=== PATIENT | female | born 1940 | race Caucasian/White ===

== ENCOUNTER 2022-01-13 20:06 | Emergency (ER) | payer OTHER ==
[~2022-01-13] VITALS: Ht 157.5 cm; Wt 58.1 kg
[2022-01-13 20:37] LABS: BASOPHILS % (AUTO) 0.8 % (0.0-5.0); EOSINOPHILS % (AUTO) 1.9 % (0.0-8.0); HEMATOCRIT 43.1 % (36-48); LYMPHOCYTES % (AUTO) 32.7 % (21.0-51.0); MEAN CORPUSCULAR HEMOGLOBIN 33.6 pg (27.0-33.0); MEAN CORPUSCULAR HGB CONC 33.6 g/dL (32.0-36.0); MONOCYTES % (AUTO) 11.3 % (3.0-13.0); PLATELET COUNT (AUTO) 185 K/uL (130-400); RED BLOOD CELL COUNT(AUTO) 4.31 MIL/uL (4.00-5.50); RED CELL DISTRIBUTION WIDTH 13.8 % (11.0-15.5); WHITE BLOOD COUNT (AUTO) 6.4 K/uL (4.8-10.8)
[2022-01-13 20:42] LABS: CREATININE 0.8 mg/dL (0.5-1.5); POTASSIUM 3.8 mmol/L (3.5-5.1)
[2022-01-13 20:46] LABS: ALBUMIN 3.7 g/dL (3.5-5.0); TOTAL PROTEIN, SERUM 7.7 g/dL (6.0-8.3)
[2022-01-13 20:51] LABS: APPEARANCE,URINE CLOUDY (CLEAR); BILIRUBIN,URINE NEGATIVE (NEGATIVE); COLOR,URINE LIGHT-YELLOW (YELLOW); GLUCOSE, URINE (UA) NEGATIVE (NEGATIVE); KETONES,URINE 5 mg/dL (NEGATIVE); LEUKOCYTE ESTERASE ,URINE 500 Leu/uL (NEGATIVE); NITRATE,URINE NEGATIVE (NEGATIVE); OCCULT BLOOD,URINE SMALL (NEGATIVE); PROTEIN,URINE NEGATIVE (NEGATIVE); UROBILINOGEN,URINE 0.2 mg/dL (0.2-1.0)
[2022-01-13 21:01] LABS: BACTERIA,URINE RARE /HPF (None Seen); MUCUS,URINE RARE LPF (None Seen); SQUAMOUS EPITHELIAL CELL,UR MOD /HPF (0-2); WBC,URINE 51-100 /HPF (0-1)
[2022-01-13 21:58] LABS: INR 0.95 (0.85-1.15); PROTHROMBIN TIME 10.4 SEC (9.6-11.6)
[2022-01-13 21:59] LABS: PARTIAL THROMBOPLASTIN TIME 27.7 SEC (26.3-35.5)
[2022-01-13] MEDS ORDERED: APIXABAN 5 MG TABLET ONE (22:11)
[2022-01-13] MEDS ORDERED: APIXABAN 5 MG TABLET PO ONE (22:30)
[2022-01-13] MEDS ORDERED: APIX5TAB PO (22:42)
[2022-01-13 22:48] VITALS: BP 149/55
== END 2022-01-13 23:09 | disposition home or self-care (01) ==
LOC: EDH 20:06
DX: I82.402 Acute embolism and thrombosis of unspecified deep veins of left lower extremity (principal); E78.00 Pure hypercholesterolemia, unspecified; I10 Essential (primary) hypertension; Z98.890 Other specified postprocedural states
CPT/HCPCS: 36415; 80053; 81001; 85025; 85610; 85730; 87088

== ENCOUNTER → 2022-04-17 | Outpatient (CLI) | payer OTHER ==
[~2022-04-17] MED LIST: APIX5TAB PO
== END | disposition home or self-care (01) ==
LOC: SHCH 12:22
PROVIDERS: ATTEND Student in an Organized Health Care Education/Training Program
DX: I82.402 Acute embolism and thrombosis of unspecified deep veins of left lower extremity (principal); I82.432 Acute embolism and thrombosis of left popliteal vein; I82.412 Acute embolism and thrombosis of left femoral vein; R60.9 Edema, unspecified
CPT/HCPCS: 93970

== ENCOUNTER → 2022-08-05 | Outpatient (CLI) | payer OTHER | END | disposition home or self-care (01) | LOC: SHCH 12:18 | PROVIDERS: ATTEND Student in an Organized Health Care Education/Training Program | DX: I82.432 Acute embolism and thrombosis of left popliteal vein (principal); I73.9 Peripheral vascular disease, unspecified; I10 Essential (primary) hypertension; E78.5 Hyperlipidemia, unspecified; Z79.01 Long term (current) use of anticoagulants; Z79.899 Other long term (current) drug therapy | CPT/HCPCS: 93971 ==

== ENCOUNTER 2023-10-15 17:04 | Emergency (ER) | payer OTHER ==
[~2023-10-15] VITALS: Ht 157.5 cm; Wt 56.7 kg
[~2023-10-15 17:04] MED LIST changes: -APIX5TAB PO; +DIPH1TAB PO; +LEVO-70 PO; +LORA10TA7 PO; +METO50TA18 PO; +OMEP40CA21 PO; +ONDA-104 PO; +ONDA-245 PO; +SIMV-46 PO; +b12; +folate
[2023-10-15 18:24] LABS: APPEARANCE,URINE CLEAR (CLEAR); BILIRUBIN,URINE NEGATIVE (NEGATIVE); COLOR,URINE COLORLESS (YELLOW); GLUCOSE, URINE (UA) NEGATIVE (NEGATIVE); KETONES,URINE NEGATIVE (NEGATIVE); LEUKOCYTE ESTERASE ,URINE NEGATIVE Leu/uL (NEGATIVE); NITRATE,URINE NEGATIVE (NEGATIVE); OCCULT BLOOD,URINE NEGATIVE (NEGATIVE); PH,URINE 5.5 (5.0-8.0); PROTEIN,URINE NEGATIVE (NEGATIVE); UROBILINOGEN,URINE 0.2 mg/dL (0.2-1.0)
[2023-10-15 18:26] LABS: ADD UA MICROSCOPIC YES
[2023-10-15 18:27] LABS: RBC,URINE 0-1 /HPF (0-1); SQUAMOUS EPITHELIAL CELL,UR RARE /HPF (0-2)
[2023-10-15] MEDS: ONDANSETRON 4MG INJ IVP ONE (18:57)
[2023-10-15] MEDS: FAMOTIDINE 20MG TAB PO ONE (18:57)
[2023-10-15 19:24] LABS: BASOPHILS # (AUTO) 0.05 K/uL (0.00-0.20); BASOPHILS % (AUTO) 0.8 % (0.0-5.0); EOSINOPHILS # (AUTO) 0.02 K/uL (0.00-0.70); EOSINOPHILS % (AUTO) 0.3 % (0.0-8.0); HEMATOCRIT 37.6 % (36-48); IMMATURE GRANULOCYTE ABSOLUTE 0.04 K/uL (0-1); LYMPHOCYTES # (AUTO) 1.3 K/uL (1.0-4.8); LYMPHOCYTES % (AUTO) 21.3 % (21.0-51.0); MEAN CORPUSCULAR HEMOGLOBIN 33.2 pg (27.0-33.0); MEAN CORPUSCULAR HGB CONC 34.3 g/dL (32.0-36.0); MEAN CORPUSCULAR VOLUME 96.9 fL (79-99); MONOCYTES # (AUTO) 0.8 K/uL (0.1-1.0); MONOCYTES % (AUTO) 12.5 % (3.0-13.0); NEUTROPHILS # (AUTO) 3.9 K/uL (1.8-7.7); NEUTROPHILS % (AUTO) 64.4 % (40.0-77.0); PLATELET COUNT (AUTO) 169 K/uL (130-400); RED BLOOD CELL COUNT(AUTO) 3.88 MIL/uL (4.00-5.50); RED CELL DISTRIBUTION WIDTH 13.1 % (11.0-15.5); WHITE BLOOD COUNT (AUTO) 6.1 K/uL (4.8-10.8)
[2023-10-15 19:27] LABS: CREATININE 0.8 mg/dL (0.5-1.0); POTASSIUM 3.4 mmol/L (3.5-5.1)
[2023-10-15] MEDS ORDERED: IOHEXOL-350 75 ML VIAL IV ONE (19:32)
[2023-10-15 19:35] LABS: ALBUMIN 3.9 g/dL (3.5-5.0); BILIRUBIN,TOTAL 0.6 mg/dL (0.2-1.0); TOTAL PROTEIN, SERUM 7.4 g/dL (6.0-8.3)
[2023-10-15] MEDS: ONDANSETRON 4MG INJ IVP STA (20:08)
[2023-10-15 20:14] VITALS: PULSE 102
[2023-10-15] MEDS: 0.9%NACL 1000ML 1,000 ML IV ONE (20:16)
[2023-10-15 20:34] VITALS: BP 170/72; RESP 18; O2SAT 97
[2023-10-15] MEDS ORDERED: ONDA-243 PO (20:40)
== END 2023-10-15 20:57 | disposition home or self-care (01) ==
LOC: EDH 17:04
DX: K57.90 Diverticulosis of intestine, part unspecified, without perforation or abscess without bleeding (principal); R19.7 Diarrhea, unspecified; R11.0 Nausea; I10 Essential (primary) hypertension; E78.00 Pure hypercholesterolemia, unspecified; Z79.899 Other long term (current) drug therapy; Z87.440 Personal history of urinary (tract) infections; Z90.710 Acquired absence of both cervix and uterus; Z98.890 Other specified postprocedural states
CPT/HCPCS: 99285; 74177; 96374; 96361; 84484; 80053; 83690; 85025; 81001; 36415; 96376; 93005; J7030; J2405 ×2; Q9967

== ENCOUNTER 2023-12-15 19:07 | Inpatient (IN) | payer OTHER ==
[~2023-12-15] VITALS: Ht 157.5 cm; Wt 54.8 kg
[~2023-12-15 19:07] MED LIST changes: +ONDA-243 PO; -b12; +b12 PO
[2023-12-15] MEDS: metoPROLOL tartRATE 1 MG/ML 5ML VIAL IV ONE ×2 (19:32)
[2023-12-15 19:35] LABS: BASOPHILS # (AUTO) 0.05 K/uL (0.00-0.20); BASOPHILS % (AUTO) 0.4 % (0.0-5.0); EOSINOPHILS # (AUTO) 0.24 K/uL (0.00-0.70); HEMATOCRIT 34.6 % (36-48); IMMATURE GRANULOCYTE ABSOLUTE 0.05 K/uL (0-1); LYMPHOCYTES # (AUTO) 0.2 K/uL (1.0-4.8); LYMPHOCYTES % (AUTO) 1.6 % (21.0-51.0); MEAN CORPUSCULAR HEMOGLOBIN 32.7 pg (27.0-33.0); MEAN CORPUSCULAR HGB CONC 34.7 g/dL (32.0-36.0); MEAN CORPUSCULAR VOLUME 94.3 fL (79-99); MONOCYTES # (AUTO) 1.4 K/uL (0.1-1.0); MONOCYTES % (AUTO) 11.6 % (3.0-13.0); PLATELET COUNT (AUTO) 183 K/uL (130-400); RED BLOOD CELL COUNT(AUTO) 3.67 MIL/uL (4.00-5.50); RED CELL DISTRIBUTION WIDTH 13.3 % (11.0-15.5); WHITE BLOOD COUNT (AUTO) 11.9 K/uL (4.8-10.8)
[2023-12-15] MEDS: acetaMINOPHEN 325 MG TAB PO ONE (19:49)
[2023-12-15 19:55] LABS: CREATININE 1.8 mg/dL (0.5-1.0); POTASSIUM 3.6 mmol/L (3.5-5.1)
[2023-12-15 19:56] LABS: MAGNESIUM 1.6 mg/dL (1.80-2.40)
[2023-12-15 20:00] LABS: INR 1.04 (0.85-1.15); PROTHROMBIN TIME 11.2 SEC (9.6-11.6)
[2023-12-15 20:01] LABS: B-TYPE NATRIURETIC PEPTIDE 83 pg/mL (0-100); PARTIAL THROMBOPLASTIN TIME 36.2 SEC (26.3-35.5)
[2023-12-15 20:21] VITALS: TEMP 98.7
[2023-12-15] MEDS: 0.9%NACL 1000ML 1,000 ML IV ONE (20:27)
[2023-12-15] MEDS ORDERED: MAGNESIUM 4GM PREMIX 100ML IV SCH (20:30)
[2023-12-15] MEDS: MAGNESIUM 2GM PREMIX 50ML 50 ML IV SCH (20:44)
[2023-12-15] MEDS: ALBUMIN (HUMAN) 5% 500 ML IV SCH (21:56)
[2023-12-15] MEDS ORDERED: POTA-364 PO (22:20)
[2023-12-15] MEDS ORDERED: OMEP20CA12 PO (22:20)
[2023-12-15] MEDS ORDERED: ACET-66 PO (22:20)
[2023-12-15] MEDS ORDERED: ONDA-105 PO (22:20)
[2023-12-15] MEDS ORDERED: AEC81 PO (22:20)
[2023-12-15] MEDS ORDERED: LATA2.5D14 OU (22:20)
[2023-12-15] MEDS ORDERED: cefTRIAXone 1G VIAL 1 GM in 0.9%NACL 50ML 50 ML IV SCH (23:30)
[2023-12-15] MEDS ORDERED: MAGNESIUM 2GM PREMIX 50ML 50 ML IV PRN (23:30)
[2023-12-15] MEDS ORDERED: DEXTROSE 50%-WATER 50 ML DISP.SYRIN IV PRN (23:30)
[2023-12-15] MEDS ORDERED: POTASSIUM CHLORIDE 20MEQ/100ML 100 ML IV PRN (23:30)
[2023-12-15] MEDS ORDERED: GLUCAGON 1MG KIT 1 MG ML IM PRN (23:30)
[2023-12-16] VITALS (9 sets, daily range): BP systolic 101–122; BP diastolic 56–80; PULSE 80–92; RESP 18–20; TEMP 97.5–98.8; O2SAT 96–98
[2023-12-16] MEDS: 0.9%NACL 1000ML 1,000 ML IV SCH (00:06)
[2023-12-16] MEDS: HEParin 5,000 UNIT VIAL SQ SCH (00:07)
[2023-12-16] MEDS: cefTRIAXone 1G VIAL IVPB SCH (00:07)
[2023-12-16] MEDS: AZITHROMYCIN 500MG+NS 250ML 250 ML IV SCH (00:15)
[2023-12-16 04:45] LABS: BASOPHILS # (AUTO) 0.05 K/uL (0.00-0.20); BASOPHILS % (AUTO) 0.4 % (0.0-5.0); EOSINOPHILS # (AUTO) 0.01 K/uL (0.00-0.70); EOSINOPHILS % (AUTO) 0.1 % (0.0-8.0); HEMATOCRIT 32.3 % (36-48); IMMATURE GRANULOCYTE ABSOLUTE 0.04 K/uL (0-1); LYMPHOCYTES # (AUTO) 0.3 K/uL (1.0-4.8); LYMPHOCYTES % (AUTO) 2.3 % (21.0-51.0); MEAN CORPUSCULAR HEMOGLOBIN 32.7 pg (27.0-33.0); MEAN CORPUSCULAR HGB CONC 34.1 g/dL (32.0-36.0); MEAN CORPUSCULAR VOLUME 96.1 fL (79-99); MONOCYTES # (AUTO) 1.3 K/uL (0.1-1.0); MONOCYTES % (AUTO) 10.1 % (3.0-13.0); NEUTROPHILS # (AUTO) 11.1 K/uL (1.8-7.7); NEUTROPHILS % (AUTO) 86.8 % (40.0-77.0); PLATELET COUNT (AUTO) 172 K/uL (130-400); RED BLOOD CELL COUNT(AUTO) 3.36 MIL/uL (4.00-5.50); RED CELL DISTRIBUTION WIDTH 13.5 % (11.0-15.5); WHITE BLOOD COUNT (AUTO) 12.8 K/uL (4.8-10.8)
[2023-12-16 04:58] LABS: HEMOGLOBIN A1C 5.6 % (4.0-6.0)
[2023-12-16 05:16] LABS: ALBUMIN 2.3 g/dL (3.5-5.0); BILIRUBIN,TOTAL 0.5 mg/dL (0.2-1.0); CREATININE 1.7 mg/dL (0.5-1.0); POTASSIUM 3.9 mmol/L (3.5-5.1); THYROID STIMULATING HORMONE 0.87 uIU/mL (0.36-3.74); TOTAL PROTEIN, SERUM 5.6 g/dL (6.0-8.3)
[2023-12-16] MEDS: INSULIN humuLIN R 100 UNIT/ML 3ML SQ SCH (05:46)
[2023-12-16] MEDS: FAMOTIDINE 20MG TAB PO SCH (09:52)
[2023-12-16] MEDS: metOPROLol sucCINATE 25 MG TAB.SR.24H PO ONE (10:06)
[2023-12-16] MEDS: acetaMINOPHEN 325 MG TAB PO PRN (10:06)
[2023-12-16 11:48] LABS: APPEARANCE,URINE CLOUDY (CLEAR); BILIRUBIN,URINE NEGATIVE (NEGATIVE); COLOR,URINE LIGHT-YELLOW (YELLOW); GLUCOSE, URINE (UA) NEGATIVE (NEGATIVE); KETONES,URINE NEGATIVE (NEGATIVE); LEUKOCYTE ESTERASE ,URINE 500 Leu/uL (NEGATIVE); NITRATE,URINE 1+ (NEGATIVE); OCCULT BLOOD,URINE MODERATE (NEGATIVE); PROTEIN,URINE 200 mg/dL (NEGATIVE); UROBILINOGEN,URINE 0.2 mg/dL (0.2-1.0)
[2023-12-16 11:58] LABS: ADD UA MICROSCOPIC YES
[2023-12-16 12:01] LABS: BACTERIA,URINE FEW /HPF (None Seen); MUCUS,URINE RARE LPF (None Seen); SQUAMOUS EPITHELIAL CELL,UR RARE /HPF (0-2); TRANSITIONAL EPI CELLS,URINE RARE /HPF (None Seen); WBC,URINE TNTC /HPF (0-1)
[2023-12-16] MEDS: APIXaban 2.5 MG TABLET PO ONE (12:24)
[2023-12-16] MEDS: ZOSYN 3.375GM +NS 50ML IV SCH (13:13)
[2023-12-16] MEDS: ONDANSETRON 4MG INJ IV PRN (15:45)
[2023-12-16 16:12] LABS: RAPID GROUP A STREP negative (NEGATIVE)
[2023-12-16] MEDS ORDERED: NAPR-1141 PO (16:14)
[2023-12-16] MEDS ORDERED: MAGN400T53 PO (16:14)
[2023-12-16] MEDS ORDERED: SIME125C81 PO (16:14)
[2023-12-16] MEDS ORDERED: FOLI0.8T3 PO (16:14)
[2023-12-16] MEDS ORDERED: [UNRECOGNIZED DRUG - REMARK] PO (16:14)
[2023-12-16] MEDS ORDERED: ASCO500T92 PO (16:14)
[2023-12-16] MEDS ORDERED: SENN-304 PO (16:14)
[2023-12-16 16:22] LABS: COVID19 (SARS ANTIGEN RAPID) PRESUMPTIVE NEGATIVE (NEGATIVE); INFLUENZA TYPE A Negative For Type A (NEGATIVE); INFLUENZA TYPE B Negative For Type B (NEGATIVE)
[2023-12-16] MEDS: LATANOPROST 2.5 ML DROPS OU SCH (20:05)
[2023-12-16] MEDS: simVASTatin 20 MG TABLET PO SCH (20:06)
[2023-12-16] MEDS: APIXaban 2.5 MG TABLET PO SCH (20:06)
[2023-12-17] VITALS (8 sets, daily range): BP systolic 99–124; BP diastolic 50–76; PULSE 73–82; RESP 16–18; TEMP 97.5–98.6; O2SAT 93–95
[2023-12-17 04:21] LABS: HEMATOCRIT 31.9 % (36-48); MEAN CORPUSCULAR HEMOGLOBIN 32.2 pg (27.0-33.0); MEAN CORPUSCULAR HGB CONC 33.2 g/dL (32.0-36.0); RED BLOOD CELL COUNT(AUTO) 3.29 MIL/uL (4.00-5.50); RED CELL DISTRIBUTION WIDTH 13.8 % (11.0-15.5); WHITE BLOOD COUNT (AUTO) 13.2 K/uL (4.8-10.8)
[2023-12-17 04:38] LABS: ALBUMIN 1.7 g/dL (3.5-5.0); BILIRUBIN,TOTAL 0.3 mg/dL (0.2-1.0); CREATININE 1.6 mg/dL (0.5-1.0); MAGNESIUM 2.4 mg/dL (1.80-2.40); POTASSIUM 3.7 mmol/L (3.5-5.1); TOTAL PROTEIN, SERUM 5.1 g/dL (6.0-8.3)
[2023-12-17] MEDS: POTASSIUM CHLORIDE 10% ELIXIR 20 MEQ/15 ML UDCUP PO PRN (06:32)
[2023-12-17] MEDS ORDERED: NON-FORMULARY MEDICATION 1 EACH (Omeprazole 20 MG) PO SCH (07:30)
[2023-12-17] MEDS ORDERED: NON-FORMULARY MEDICATION 1 EACH (Simvastatin 40 MG) PO SCH (09:00)
[2023-12-17] MEDS: PANTOPRAZOLE 40 MG TAB DR PO SCH (10:03)
[2023-12-17] MEDS: metOPROLol sucCINATE 25 MG TAB.SR.24H PO SCH (10:03)
[2023-12-17] MEDS: KCL 20 MEQ ERTAB PO PRN (10:12)
[2023-12-17] MEDS: IpraTROPium 0.5 MG/2.5 ML INH IH SCH (12:30)
[2023-12-17] MEDS: DOXYCYCLINE 100MG+NS 250ML 250 ML IV SCH (12:46)
[2023-12-17] MEDS: SODIUM CHLORIDE 7% INHALATION 4 ML VIAL.NEB IH ONE (19:05)
[2023-12-18] VITALS (12 sets, daily range): BP systolic 116–150; BP diastolic 65–78; PULSE 68–85; RESP 18; TEMP 97.5–98.8; O2SAT 93–98
[2023-12-18 03:43] LABS: BASOPHILS # (AUTO) 0.02 K/uL (0.00-0.20); BASOPHILS % (AUTO) 0.2 % (0.0-5.0); EOSINOPHILS # (AUTO) 0.08 K/uL (0.00-0.70); EOSINOPHILS % (AUTO) 0.8 % (0.0-8.0); HEMATOCRIT 32.9 % (36-48); IMMATURE GRANULOCYTE ABSOLUTE 0.09 K/uL (0-1); LYMPHOCYTES # (AUTO) 0.4 K/uL (1.0-4.8); LYMPHOCYTES % (AUTO) 3.9 % (21.0-51.0); MEAN CORPUSCULAR HGB CONC 32.2 g/dL (32.0-36.0); MEAN CORPUSCULAR VOLUME 99.4 fL (79-99); MONOCYTES % (AUTO) 10.1 % (3.0-13.0); NEUTROPHILS # (AUTO) 8.2 K/uL (1.8-7.7); NEUTROPHILS % (AUTO) 84.1 % (40.0-77.0); PLATELET COUNT (AUTO) 205 K/uL (130-400); RED BLOOD CELL COUNT(AUTO) 3.31 MIL/uL (4.00-5.50); WHITE BLOOD COUNT (AUTO) 9.8 K/uL (4.8-10.8)
[2023-12-18 04:03] LABS: ALBUMIN 1.7 g/dL (3.5-5.0); BILIRUBIN,TOTAL 0.4 mg/dL (0.2-1.0); CREATININE 1.5 mg/dL (0.5-1.0); MAGNESIUM 2.2 mg/dL (1.80-2.40); POTASSIUM 3.7 mmol/L (3.5-5.1); TOTAL PROTEIN, SERUM 5.4 g/dL (6.0-8.3)
[2023-12-18 04:24] LABS: B-TYPE NATRIURETIC PEPTIDE 407 pg/mL (0-100)
[2023-12-18] MEDS: acetaMINOPHEN 325 MG TAB PO PRN (08:34)
[2023-12-18] MEDS: SODIUM CHLORIDE 3% FOR INHALATION 4 ML/AMP VIAL.NEB IH ONE (10:47)
[2023-12-19] VITALS (7 sets, daily range): BP systolic 104–141; BP diastolic 58–73; PULSE 76–82; RESP 18–20; TEMP 97.8–98.3; O2SAT 94–98
[2023-12-19 03:47] LABS: HEMATOCRIT 30.9 % (36-48); MEAN CORPUSCULAR HEMOGLOBIN 32.1 pg (27.0-33.0); MEAN CORPUSCULAR VOLUME 97.2 fL (79-99); RED BLOOD CELL COUNT(AUTO) 3.18 MIL/uL (4.00-5.50); RED CELL DISTRIBUTION WIDTH 13.7 % (11.0-15.5); WHITE BLOOD COUNT (AUTO) 7.7 K/uL (4.8-10.8)
[2023-12-19 04:05] LABS: ALBUMIN 1.8 g/dL (3.5-5.0); BILIRUBIN,TOTAL 0.4 mg/dL (0.2-1.0); CREATININE 1.1 mg/dL (0.5-1.0); MAGNESIUM 1.8 mg/dL (1.80-2.40); POTASSIUM 3.6 mmol/L (3.5-5.1); TOTAL PROTEIN, SERUM 5.2 g/dL (6.0-8.3)
[2023-12-19] MEDS: CEFTRIAXONE 2GM VIAL IVPB SCH (12:42)
== END 2023-12-19 16:15 | DRG 871 ==
LOC: EDH 19:07 → EDHIP 23:28 → 2DH 12-16 01:56
PROVIDERS: ADMIT Internal Medicine; ATTEND Internal Medicine
DX: A41.50 Gram-negative sepsis, unspecified (principal); J18.9 Pneumonia, unspecified organism; N17.9 Acute kidney failure, unspecified; E44.0 Moderate protein-calorie malnutrition; I13.0 Hypertensive heart and chronic kidney disease with heart failure and stage 1 through stage 4 chronic kidney disease, or unspecified chronic kidney disease; I50.32 Chronic diastolic (congestive) heart failure; N30.00 Acute cystitis without hematuria; B96.20 Unspecified Escherichia coli [E. coli] as the cause of diseases classified elsewhere; E11.22 Type 2 diabetes mellitus with diabetic chronic kidney disease; N18.2 Chronic kidney disease, stage 2 (mild); R65.20 Severe sepsis without septic shock; E78.00 Pure hypercholesterolemia, unspecified; I48.0 Paroxysmal atrial fibrillation; E83.42 Hypomagnesemia; E11.65 Type 2 diabetes mellitus with hyperglycemia; E11.51 Type 2 diabetes mellitus with diabetic peripheral angiopathy without gangrene; Z86.718 Personal history of other venous thrombosis and embolism; Z82.49 Family history of ischemic heart disease and other diseases of the circulatory system; Z83.3 Family history of diabetes mellitus; Z82.5 Family history of asthma and other chronic lower respiratory diseases; Z82.3 Family history of stroke; Z79.82 Long term (current) use of aspirin; Z68.22 Body mass index [BMI] 22.0-22.9, adult; Z90.710 Acquired absence of both cervix and uterus; Z79.899 Other long term (current) drug therapy
CPT/HCPCS: 36415; 71045; 71250; 80048; 80053; 81001; 82550; 82948; 83036; 83605; 83735; 83880; 84145; 84443; 84484; 85025; 85027; 85610; 85730; 87040; 87086; 87186; 87426; 87804; 87880; 93005; 93306; 93356; 94640; G0378; J0456; J0696; J1644; J2405; J2543; J3475; J3490; J7030; P9045

== ENCOUNTER → 2024-02-17 | Outpatient (CLI) | payer OTHER ==
[~2024-02-17] MED LIST changes: +ACET-66 PO; +APIX2.5T PO; +ASCO500T92 PO; +CEPHA2505L PO; -DIPH1TAB PO; +FAMO20TA8 PO; +FOLI0.8T3 PO; +LATA2.5D14 OU; -LEVO-70 PO; +METO-408 PO; -METO50TA18 PO; +NAPR-1141 PO; +OMEP20CA12 PO; -OMEP40CA21 PO; -ONDA-243 PO; -ONDA-245 PO; +SENN-304 PO; +SIME125C81 PO; +[UNRECOGNIZED DRUG - REMARK] PO; -folate
== END | disposition home or self-care (01) ==
LOC: SHCH 14:31
PROVIDERS: ATTEND Student in an Organized Health Care Education/Training Program
DX: I48.0 Paroxysmal atrial fibrillation (principal)
CPT/HCPCS: 93306